=== PATIENT | male | born 1965 | race American Indian/Alaskan Native ===

== ENCOUNTER 2017-06-26 06:08 | Inpatient (IN) | payer MEDICARE, OTHER ==
[2017-06-26 06:14] VITALS: BMI 44.0
--- NOTE | 2017-06-26 06:37 | ED PDOC ---
Arrival/HPI - General Chief Complaint: Chest Pain Time Seen by Provider: 06/26/17 06:30 - History of Present Illness Narrative History of Present Illness (Text): 06/26/17 06:37 Patient is complaining of substernal chest pain and shortness of breath intermittent all night there was no fever no chills no dizziness no headache no palpitations no leg swelling no abdominal pain currently denies any pain Past Medical History - Provider Review Nursing Documentation Reviewed: Yes - Infectious Disease Hx of Infectious Diseases: None - Reproductive Currently : No - Cardiac Hx Cardiac Disorders: Yes Hx Atrial Fibrillation: Yes Hx Congestive Heart Failure: Yes Hx Hypertension: Yes Hx Pacemaker: Yes (left upper chest) Hx Peripheral Edema: Yes - Pulmonary Hx Respiratory Disorders: Yes Hx Chronic Obstructive Pulmonary Disease (COPD): Yes Hx Emphysema: Yes Hx Pneumonia: Yes Hx Sleep Apnea: Yes - Neurological Hx Neurological Disorder: Yes Hx Transient Ischemic Attacks (TIA): Yes (Hx of Strokes-2008) - HEENT Hx HEENT Disorder: No - Renal Hx Renal Disorder: No - Endocrine/Metabolic Hx Endocrine Disorders: Yes Hx Hypothyroidism: Yes - Hematological/Oncological Hx Blood Disorders: Yes Hx Blood Transfusions: Yes - Integumentary Hx Dermatological Disorder: No - Musculoskeletal/Rheumatological Hx Musculoskeletal Disorders: No Hx Falls: No - Gastrointestinal Hx Gastrointestinal Disorders: No - Genitourinary/Gynecological Hx Genitourinary Disorders: No - Psychiatric Hx Psychophysiologic Disorder: Yes Hx Anxiety: Yes Hx Substance Use: No - Surgical History Hx Coronary Artery Bypass Graft: Yes (2008) Hx Coronary Stent: Yes (3 Stents Prior to Quadruple Bypass) - Anesthesia Hx Anesthesia: Yes Hx Anesthesia Reactions: No Hx Malignant Hyperthermia: No - Suicidal Assessment Feels Threatened In Home Enviroment: No Family/Social History - Physician Review Nursing Documentation Reviewed: Yes Family/Social History: No Known Family HX Smoking Status: Current Some Days Smoker Hx Alcohol Use: No Hx Substance Use: No Allergies/Home Meds Allergies/Adverse Reactions: Allergies No Known Drug Allergies Allergy (Verified 06/26/17 06:14) n/a none Home Medications: Home Meds Medication Instructions Recorded Confirmed Atorvastatin [Lipitor] 80 mg PO DAILY 05/06/13 06/26/17 Hydroxychloroquine Sulfate 200 mg PO BID 05/06/13 06/26/17 [Plaquenil] Clopidogrel [Plavix] 75 mg PO DAILY 11/29/15 06/26/17 Levothyroxine [Synthroid] 1 tab PO DAILY 09/19/16 06/26/17 oxyCODONE [oxyCODONE Immediate 30 mg PO Q4H PRN 06/26/17 06/26/17 Release Tab] Review of Systems - Review of Systems Constitutional: Normal Eyes: Normal ENT: Normal Respiratory: SOB Cardiovascular: Chest Pain Gastrointestinal: Normal Genitourinary Male: Normal Musculoskeletal: Normal Skin: Normal Neurological: Normal Endocrine: Normal Hemo/Lymphatic: Normal Psychiatric: Normal Physical Exam Vital Signs Reviewed: Yes Vital Signs Temp Pulse Resp BP Pulse Ox 06/26/17 09:43 82 16 124/62 96 06/26/17 06:27 97.5 F L 83 17 113/48 L 96 Temperature: Afebrile Blood Pressure: Normal Pulse: Regular Respiratory Rate: Normal Appearance: Positive for: Well-Appearing, Non-Toxic, Comfortable Pain Distress: None Mental Status: Positive for: Alert and Oriented X 3 - Systems Exam Head: Present: Atraumatic, Normocephalic Pupils: Present: PERRL Extroacular Muscles: Present: EOMI Conjunctiva: Present: Normal Mouth: Present: Moist Mucous Membranes Neck: Present: Normal Range of Motion Respiratory/Chest: Present: Clear to Auscultation, Good Air Exchange. No: Respiratory Distress, Accessory Muscle Use Cardiovascular: Present: Regular Rate and Rhythm, Normal S1, S2. No: Murmurs Abdomen: Present: Normal Bowel Sounds. No: Tenderness, Distention, Peritoneal Signs Back: Present: Normal Inspection Upper Extremity: Present: Normal Inspection. No: Cyanosis, Edema Lower Extremity: Present: Normal Inspection. No: Edema Neurological: Present: GCS=15, CN II-XII Intact, Speech Normal Skin: Present: Warm, Dry, Normal Color. No: Rashes Psychiatric: Present: Alert, Oriented x 3, Normal Insight, Normal Concentration Medical Decision Making - Lab Interpretations Lab Results: 06/26/17 06:45 06/26/17 06:45 Lab Results 06/26/17 07:00: Digoxin < 0.4 L 06/26/17 06:45: Sodium 140, Chloride 100, Potassium 4.0, Carbon Dioxide 28, Anion Gap 16, BUN 38 H, Creatinine 1.4, Est GFR ( Amer) > 60, Est GFR ( Non-Af Amer) 54, Random Glucose 150 H, Calcium 9.1, Total Bilirubin 0.4, AST 13 L, ALT 17, Alkaline Phosphatase 141 H D, Lactate Dehydrogenase 518, Total Creatine Kinase 51, Troponin I < 0.01, NT-Pro-B Natriuret Pep 411, Total Protein 7.6, Albumin 3.6, Globulin 4.0, Albumin/Globulin Ratio 0.9 L 06/26/17 06:45: pO2 37, VBG pH 7.34, VBG pCO2 60.0, VBG HCO3 32.4 H, VBG Total CO2 34.2 H, VBG O2 Sat (Calc) 71.5 H, VBG Base Excess 4.8 H, VBG Potassium 4.0, Sodium 138.0, Chloride 103.0, Glucose 167 H, Lactate 1.0, FiO2 21.0, Venous Blood Potassium 4.0 06/26/17 06:45: WBC 6.3, RBC 3.99, Hgb 9.9 L, Hct 32.9 L, MCV 82.5, MCH 24.8 L, MCHC 30.1 L, RDW 17.7 H, Plt Count 220, MPV 10.6, Gran % 62.8, Lymph % (Auto) 27.0, [place] % (Auto) 7.4 H, Eos % (Auto) 2.5, Baso % (Auto) 0.3, Gran # 3.97, Lymph # 1.7, [place] # 0.5, Eos # 0.2, Baso # 0.02 - RAD Interpretation Radiology Orders: 06/26/17 06:39 CHEST PORTABLE [RAD] Stat - EKG Interpretation EKG Interpretation (Text): 06/26/17 06:38 100% paced rhythm rate of 87 - Medication Orders Current Medication Orders: Albuterol/Ipratropium (Duoneb 3 Mg/0.5 Mg (3 Ml) Ud) [id number] [facility] Last Admin: 06/27/17 01:00 Dose: 3 ml Apixaban (Eliquis) [address] [facility] PRN Reason: Protocol Last Admin: 06/26/17 22:00 Dose: 5 mg Atorvastatin Calcium (Lipitor) [address] [facility] Last Admin: 06/26/17 17:53 Dose: 80 mg Carvedilol (Coreg) [address] [facility] Last Admin: 06/26/17 17:53 Dose: 25 mg MAR Pulse and Blood Pressure Document 06/26/17 17:53 [facility] (Rec: 06/26/17 17:54 [place] [id number]) Pulse Pulse Rate (60-90) 90 Blood Pressure Blood Pressure (100/60-150/90) 115/64 Clopidogrel Bisulfate (Plavix) [address] [facility] Last Admin: 06/26/17 17:53 Dose: 75 mg Digoxin (Lanoxin) 0.[address] [facility] Last Admin: 06/26/17 14:53 Dose: 0.125 mg MAR Apical Pulse Rate Document 06/26/17 14:53 [facility] (Rec: 06/26/17 14:53 [id number]) Apical Pulse Rate Apical Pulse Rate (60-90 beats/min) 82 Ferrous Sulfate (Feosol) [address] [facility] Furosemide (Lasix) [address] [facility] Last Admin: 06/26/17 17:53 Dose: 40 mg MAR Blood Pressure Document 06/26/17 17:53 [facility] (Rec: 06/26/17 17:53 [place] [id number]) Blood Pressure Blood Pressure (100/60-150/90) 115/64 IVP Administration Document 06/26/17 17:53 [facility] (Rec: 06/26/17 17:53 [place] [id number]) Charges for Administration # of IVP Administrations 1 Hydroxychloroquine Sulfate (Plaquenil) [address] [facility] Last Admin: 06/26/17 19:24 Dose: 200 mg Insulin Human Regular (Humulin R Low) [address] [facility] PRN Reason: Protocol Last Admin: 06/26/17 22:04 Dose: Not Given Non-Admin Reason: Patient Refused Lisinopril (Zestril) [address] [facility] Last Admin: 06/26/17 11:29 Dose: 5 mg MAR Pulse and Blood Pressure Document 06/26/17 11:29 [facility] (Rec: 06/26/17 11:29 [email or web address]) Pulse Pulse Rate (60-90) 89 Blood Pressure Blood Pressure (100/60-150/90) 130/85 Oxycodone HCl (Oxycodone Immediate Release Tab) 30 mg PO Q4H PRN PRN Reason: Pain, moderate (4-7) Last Admin: 06/27/17 00:23 Dose: 30 mg MAR Pain Assessment Document 06/27/17 00:23 [facility] (Rec: 06/27/17 00:23 [facility]DE [id number]) Pain Reassessment Is this a pain reassessment? Yes Sleep Is patient sleeping during reassessment? No Presence of Pain Presence of Pain Yes Sitagliptin Phosphate (Januvia) 25 mg PO DAILY JUSTIN Discontinued Medications Oxycodone HCl (Oxycodone Immediate Release Tab) 30 mg PO TID PRN PRN Reason: Pain, moderate (4-7) Last Admin: 06/26/17 15:35 Dose: 30 mg MAR Pain Assessment Document 06/26/17 15:35 [facility] (Rec: 06/26/17 15:36 [facility] [id number]) Pain Reassessment Is this a pain reassessment? Yes Sleep Is patient sleeping during reassessment? No Presence of Pain Presence of Pain Yes Pain Scale Used Pain Scale Used Numeric Location Upper or Lower Lower Pain Location Body Site Back Description Description Chronic Intensity of Pain at present 10 Site Observation wnl Pain Behavior Restlessness Aggravating Factors None Alleviating Factors/Management Medication Techniques Alleviating Factors Medication - Transfer of Care Patient signed out to Dr:Tory sheffield Disposition/Present on Arrival - Present on Arrival Any Indicators Present on Arrival: No History of DVT/PE: No History of Uncontrolled Diabetes: No Urinary Catheter: No History of Decub. Ulcer: No History Surgical Site Infection Following: None - Disposition Have Diagnosis and Disposition been Completed?: Yes Diagnosis: Chest pain Disposition: HOSPITALIZED Disposition Time: 07:00 Patient Problems: Current Active Problems Problem Status Onset Chest pain Acute Condition: STABLE
--- NOTE | 2017-06-26 07:07 | ED PDOC ---
Physical Exam Vital Signs Temp Pulse Resp BP Pulse Ox 06/26/17 06:27 97.5 F L 83 17 113/48 L 96 Medical Decision Making ED Course and Treatment: 06/26/17 07:06 Patient was signed out to me by Dr. Chaves. Patient is currently pending work up. 06/26/17 09:[address] Lloyd will admit - Lab Interpretations Lab Results: 06/26/17 06:45 06/26/17 06:45 Lab Results 06/26/17 06:45: Sodium 140, Chloride 100, Potassium 4.0, Carbon Dioxide 28, Anion Gap 16, BUN 38 H, Creatinine 1.4, Est GFR ( Amer) > 60, Est GFR ( Non-Af Amer) 54, Random Glucose 150 H, Calcium 9.1, Total Bilirubin 0.4, AST 13 L, ALT 17, Alkaline Phosphatase 141 H D, Lactate Dehydrogenase 518, Total Creatine Kinase 51, Troponin I < 0.01, NT-Pro-B Natriuret Pep 411, Total Protein 7.6, Albumin 3.6, Globulin 4.0, Albumin/Globulin Ratio 0.9 L 06/26/17 06:45: pO2 37, VBG pH 7.34, VBG pCO2 60.0, VBG HCO3 32.4 H, VBG Total CO2 34.2 H, VBG O2 Sat (Calc) 71.5 H, VBG Base Excess 4.8 H, VBG Potassium 4.0, Sodium 138.0, Chloride 103.0, Glucose 167 H, Lactate 1.0, FiO2 21.0, Venous Blood Potassium 4.0 06/26/17 06:45: WBC 6.3, RBC 3.99, Hgb 9.9 L, Hct 32.9 L, MCV 82.5, MCH 24.8 L, MCHC 30.1 L, RDW 17.7 H, Plt Count 220, MPV 10.6, Gran % 62.8, Lymph % (Auto) 27.0, [place] % (Auto) 7.4 H, Eos % (Auto) 2.5, Baso % (Auto) 0.3, Gran # 3.97, Lymph # 1.7, [place] # 0.5, Eos # 0.2, Baso # 0.02 - RAD Interpretation Radiology Orders: 06/26/17 06:39 CHEST PORTABLE [RAD] Stat - Scribe Statement The provider has reviewed the documentation as recorded by the Scribe ?? Disposition/Present on Arrival - Present on Arrival Any Indicators Present on Arrival: No History of DVT/PE: No History of Uncontrolled Diabetes: No Urinary Catheter: No History of Decub. Ulcer: No History Surgical Site Infection Following: None - Disposition Have Diagnosis and Disposition been Completed?: Yes Diagnosis: Chest pain Disposition: HOSPITALIZED Disposition Time: 09:19 Condition: STABLE Discharge Instructions (ExitCare): Chest Pain (ED) Forms: [employer] (Taiwanese)
[2017-06-26 07:34] LABS: VENOUS BLOOD GAS BASE EXCESS 4.8 mmol/L (0.0-2.0); VENOUS BLOOD PH 7.34 (7.32-7.43)
[2017-06-26 07:43] LABS: ALB/GLOB RATIO 0.9 (1.1-1.8); ALKALINE PHOSPHATASE 141 U/L (38-126); ALT/SGPT 17 U/L (7-56); AST/SGOT 13 U/L (17-59); BILIRUBIN,TOTAL 0.4 mg/dL (0.2-1.3); BLOOD UREA NITROGEN 38 mg/dL (7-21); CALCIUM 9.1 mg/dL (8.4-10.5); CARBON DIOXIDE 28 mmol/L (21-33); CHLORIDE 100 mmol/L (98-107); GFR AFRICAN-AMERICAN > 60; GLUCOSE,RANDOM 150 mg/dL (70-110); SODIUM 140 mmol/L (132-148); TOTAL PROTEIN 7.6 g/dL (5.8-8.3)
[2017-06-26 07:51] LABS: BASO # 0.02 K/mm3 (0.0-2.0); BASO % 0.3 % (0.0-3.0); EOS # 0.2 (0.0-0.7); EOS % 2.5 % (1.5-5.0); GRAN # 3.97 (1.4-6.5); GRAN % 62.8 % (50.0-68.0); HEMATOCRIT 32.9 % (42.0-52.0); LYMPH # 1.7 (1.2-3.4); MEAN CELL VOLUME 82.5 fl (80.0-105.0); MEAN CORPUSCULAR HEMOGLOBIN 24.8 pg (25.0-35.0); MEAN CORPUSCULAR HGB CONC 30.1 g/dl (31.0-37.0); MEAN PLATELET VOLUME 10.6 fl (7.0-11.0); MONO # 0.5 (0.1-0.6); MONO % 7.4 % (1.0-6.0); RED CELL DISTRIBUTION WIDTH 17.7 % (11.5-14.5); WHITE BLOOD COUNT 6.3 10^3/ul (4.5-11.0)
[2017-06-26 07:55] LABS: TROPONIN I < 0.01 ng/mL
--- NOTE | 2017-06-26 09:03 | CARD ---
APPROVED REPORT EKG Measurement Heart [id number] <Conclusion> Electronic ventricular pacemaker: 100 % V. Paced, A. Sensed. No change
[2017-06-26 10:22] VITALS: O2SAT 100
[2017-06-26] MEDS: oxyCODONE 30 mg Immediate Release Tab PO PRN ×3 (11:29→20:30)
[2017-06-26] MEDS ORDERED: oxyCODONE 30 mg Immediate Release Tab PO SCH ×2 (14:00)
[2017-06-26] MEDS: Digoxin 125 mcg (0.125 mg) Tab PO SCH (14:53)
--- NOTE | 2017-06-26 15:58 | RAD ---
HISTORY: Chest pain COMPARISON: 05/26/2016 FINDINGS: LUNGS: No active pulmonary disease. PLEURA: No significant pleural effusion identified, no pneumothorax apparent. CARDIOVASCULAR: AICD. Normal heart size. No congestive change. OSSEOUS STRUCTURES: No significant abnormalities. VISUALIZED UPPER ABDOMEN: Normal. OTHER FINDINGS: None. IMPRESSION: No active disease.
[2017-06-26] MEDS: Insulin Reg-LOW-Coverage SC SCH (22:04)
[2017-06-27] MEDS: oxyCODONE 30 mg Immediate Release Tab PO PRN ×4 (00:23→14:17)
[2017-06-27] MEDS: Albuterol-Ipratrop 3 mg / 0.5 (3 ml) UD IH SCH ×3 (01:00→14:12)
--- NOTE | 2017-06-27 04:54 | CON ---
PULMONARY CONSULTATION DATE: 06/26/2017 REFERRING PHYSICIAN: Azalea Lloyd MD REASON FOR CONSULTATION: Known sleep apnea syndrome, chronic lung disease, active smoker, cardiomyopathy, and noncompliant. HISTORY OF PRESENT ILLNESS: This is a 51-year-old gentleman known to me from [facility], last seen about 4 years or so, diagnosed with sleep apnea syndrome, noncompliant with it from the last couple of months, also active smoker, visiting brother from [place] to [place], got short of breath and up in the emergency room, admitted with cardiomyopathy and heart failure, and does have cough and shortness of breath. No nausea. No vomiting. No diarrhea. Does have a leg swelling. PAST MEDICAL HISTORY: Cardiomyopathy, obstructive sleep apnea syndrome, COPD, morbid obesity, history of coronary artery disease, also has a history of AICD, atrial fibrillation, and history of lower extremity cellulitis. SOCIAL HISTORY: Active smoker. Deny any alcohol use. FAMILY HISTORY: No significant cardiopulmonary disease reported. MEDICATIONS: He is on Coreg 25 mg twice a day, Eliquis 5 mg twice a day, ferrous sulfate 325 mg daily, insulin coverage, Januvia 25 mg daily, digoxin 0.125 mg daily, Lasix 40 mg twice a day, Lipitor 80 mg daily, oxycodone 30 mg q.4 hours p.r.n., Plaquenil 200 mg twice a day, Plavix 75 mg daily, and Zestril 5 mg daily. REVIEW OF SYSTEMS: No headache. No rhinitis. Has cough and shortness of breath. No chest pain at present. No nausea. No vomiting or diarrhea. Significant leg swelling. PHYSICAL EXAMINATION: GENERAL: Sitting at the side of the bed, mild distress secondary to cough and shortness of breath. VITAL SIGNS: Temperature is 98, heart rate is 93, respiratory rate is 20, blood pressure is 115/64, and pulse ox 100% on nasal cannula. HEENT: Moist mucous membrane. Crowded airway. Mallampati score is IV. NECK: Short thick neck. LUNGS: Has few crackles at bases, scattered rhonchi. HEART: S1 and S2. ABDOMEN: Soft and nontender. No organomegaly. EXTREMITIES: Does have a chronic change of his lower extremity. NEUROLOGIC: Awake, alert, and follow simple commands. LABORATORY DATA: Shows hemoglobin 9.9, hematocrit 32.9, WBC 6.3, and platelet count 220. done, which shows pH of 7.34, pCO2 of 60, and O2 of 34. Sodium 140, potassium 4.0, chloride 100, bicarbonate 28, BUN 38, creatinine 1.4, glucose 150, calcium 9.1, LDH is 518, total bilirubin 0.4, AST 13, ALT 17, alk phos 141, proBNP is 411, and albumin is 3.6. Head and chest x-ray done, which shows no active pulmonary disease. IMPRESSION AND PLAN: Cardiomyopathy, history of atrial fibrillation, chronic obstructive lung disease, hypothyroid, has automatic implantable cardioverter-defibrillator, renal insufficiency, chronic obstructive lung disease, obstructive sleep apnea syndrome, and diabetes. I spoke to the patient in detail, urge him to stop smoking, we will place him on continuous positive airway pressure 10 cm, will need sleep study as outpatient, pulmonary function test as outpatient, diuretics , anticoagulation, fall precaution, and followup labs in the morning. Thank you and we will follow with you. Nayla Robins MD
[2017-06-27 06:53] LABS: HEMATOCRIT 32.5 % (42.0-52.0); MEAN CELL VOLUME 81.9 fl (80.0-105.0); MEAN CORPUSCULAR HEMOGLOBIN 24.7 pg (25.0-35.0); MEAN CORPUSCULAR HGB CONC 30.2 g/dl (31.0-37.0); MEAN PLATELET VOLUME 10.3 fl (7.0-11.0); RED CELL DISTRIBUTION WIDTH 17.3 % (11.5-14.5); WHITE BLOOD COUNT 5.9 10^3/ul (4.5-11.0)
[2017-06-27 07:06] LABS: ALB/GLOB RATIO 0.8 (1.1-1.8); ALKALINE PHOSPHATASE 95 U/L (38-126); ALT/SGPT 19 U/L (7-56); AST/SGOT 15 U/L (17-59); BILIRUBIN,TOTAL 0.5 mg/dL (0.2-1.3); BLOOD UREA NITROGEN 24 mg/dL (7-21); CALCIUM 8.9 mg/dL (8.4-10.5); CARBON DIOXIDE 28 mmol/L (21-33); CHLORIDE 101 mmol/L (98-107); GFR AFRICAN-AMERICAN > 60; GLUCOSE,RANDOM 118 mg/dL (70-110); SODIUM 137 mmol/L (132-148); TOTAL PROTEIN 7.4 g/dL (5.8-8.3)
[2017-06-27 07:18] LABS: TROPONIN I < 0.01 ng/mL
[2017-06-27] MEDS: Insulin Reg-LOW-Coverage SC SCH ×2 (07:56→11:55)
--- NOTE | 2017-06-27 10:30 | HP ---
CHIEF COMPLAINT: Chest pain. HISTORY OF PRESENT ILLNESS: Mr. Axel Lora, 51 years old male with history of multiple medical problems, is visiting his nephew, came with complaining of substernal chest pain, shortness of breath, it is intermittent all night. There was no fever, no chills, no dizziness, no headache, no palpitations, no swelling of the leg, no abdominal pain. The patient was seen by me in the telemetry. His nurse, Steph and his nephew was on the bedside, complaining about back pain and according to him he is taking Oxycodone every 4 hours as needed. PAST MEDICAL HISTORY: Atrial fibrillation, congestive heart failure, hypertension, pacemaker in the left upper chest, peripheral edema, COPD, emphysema, pneumonia, sleep apnea, history of TIA, hypothyroidism, blood transfusion, anxiety, coronary artery bypass graft, coronary artery stenting, 3 stents before quadruple bypass. FAMILY HISTORY: Father and mother noncontributory. HABITS: Currently smoking. Alcohol - no. Drugs abuse - no. ALLERGIES: THE PATIENT IS NOT ALLERGIC TO ANY MEDICATIONS PER PATIENT. HOME MEDICATIONS: Lipitor, Plaquenil, Plavix, Synthroid, and oxycodone. REVIEW OF SYSTEMS: The patient is seen and examined on the bedside, sitting comfortable, except that complaining pain in the back. sitting on the bedside also. At this moment, no chest pain, no nausea, vomiting, diarrhea. No hematuria, hematochezia. No headache, no dizziness. No fevers, no chills. PHYSICAL EXAMINATION: VITAL SIGNS: Temperature 97.5, pulse 56, respirations 17, blood pressure 113/48, pulse oximetry 96%. HEENT: Head is normocephalic and atraumatic. Eyes, PERRLA. Extraocular muscles are intact. Conjunctivae are clear. Nose is patent. Mucous membranes are moist. NECK: Supple. No carotid bruits, JVD, or thyromegaly. CHEST: Bilaterally symmetrical. HEART: S1 and S2 positive. LUNGS: Clear to auscultation. ABDOMEN: Soft. Bowel sounds present. No organomegaly. EXTREMITIES: No edema. No cyanosis. NEUROLOGICAL: The patient is awake and alert. Moving all four extremities. No focal deficits. LABORATORY DATA: White blood cells 6.3, hemoglobin 9.9, hematocrit 32.9, and platelets 220. Sodium 140, potassium 4.0, BUN 13, creatinine 1.4, glucose 150. AST 13, alkaline phosphatase 141. Digoxin level less than 4. ASSESSMENT AND PLAN: Mr. Axle Lora is a 51-year-old male with anemia, increase BUN, hyperglycemia, abnormal liver function test, came with chest pain, history of obesity, atrial fibrillation, congestive heart failure, hypertension, history of pacemaker in the left upper chest, peripheral vascular disease, chronic obstructive pulmonary disease, asthma, emphysema, pneumonia, obstructive sleep apnea syndrome, transient ischemic attack, hypothyroidism, anemia, status post blood transfusion, anxiety, gastrointestinal and deep venous thrombosis prophylaxis. Discussion done with Dr. Robins. The patient is getting pain medications for his back pain as per the patient. Call pain management. Call will be placed to Dr. Lucero. Started the patient on Coreg. The patient is taking both Eliquis and Plavix. We will leave on the cardiological decision. Lipitor for hypercholesterolemia. Repeat labs. We will follow up. Azalea Lloyd MD MTDD
[2017-06-27 12:01] VITALS: BP 134/87; PULSE 72; RESP 19; TEMP 97.1
[2017-06-27] MEDS: Digoxin 125 mcg (0.125 mg) Tab PO SCH (13:28)
[2017-06-27 13:31] VITALS: PULSE 90
--- NOTE | 2017-06-27 19:18 | CON ---
REASON FOR CONSULTATION: Cardiac evaluation, chest pain, cardiomyopathy, history of coronary artery disease, status post PTCA. BRIEF CLINICAL HISTORY: A 51-year-old male with past medical history significant for coronary artery disease, status post stent in the past; history of atrial fibrillation; cardiomyopathy, status post AICD, came in with complaint of chest pain, sharp. PAST MEDICAL HISTORY: Significant for atrial fibrillation, cardiomyopathy, history of PTCA, history of coronary artery bypass surgery, history of AICD, first one was done in [address] Patel. Rrecently the patient had generator change by Dr. Valenzuela in 2012 and history of last catheterization stent was done by Dr. Sultana and was told that the patient does not need any further stenting. Past history is significant for diabetes, hypertension, hyperlipidemia, morbid obesity, AICD, nonischemic cardiomyopathy, history of TIA, history of sleep apnea, pneumonia, quadruple bypass and history of 3 coronary stents post bypass. FAMILY HISTORY: Noncontributory. HABITS: Smokes, currently smokes half-a-pack. Denies any history of alcohol abuse. ALLERGIES: NOT ALLERGY TO ANY MEDICATION. CURRENT MEDICATIONS: The patient taking oxycodone, Januvia, lisinopril, digoxin, clopidogrel, Plavix, and Eliquis. REVIEW OF SYSTEMS: As per HPI. PREVIOUS CARDIAC WORKUP: Most recently cardiac catheterization in 2014 by his editorial project manager showed ejection fraction 20% and cannot do any stent or bypass. The patient's last echocardiography in 04/01/2016 showed ejection fraction within normal limit. Blood workup: WBC 5.9, hemoglobin 9, hematocrit 32.5, and platelet count 184. Chemistry showed sodium 135, potassium 4, chloride 101, carbon dioxide 28, anion gap 12, BUN 24, creatinine 0.9, troponin 0.01. IMPRESSION: A 51-year-old male with past medical history significant for coronary artery disease, status post 4 vessels coronary artery bypass graft in the past; diabetes; hypertension; hyperlipidemia; history of percutaneous transluminal coronary angioplasty most recently, the patient according to him was had a cath done by his doctor, Dr. Moon uSltana and told further stenting, CABG cannot be done. Diabetes, hypertension, hyperlipidemia, AICD, cardiomyopathy, atrial fibrillation, history of chronic obstructive pulmonary disease, history of obstructive sleep apnea. RECOMMENDATIONS: We will get echo and stress test. Further recommendations after follow up with you. So far, troponin is negative. ADDENDUM: Discussed with the patient. The patient agreed for stress test. The patient was brought to the label drier, noninvasive lab for stress test. The patient refused and said that his doctor told that not to get stress test, so he refused the stress test. We will treat medically and we will discontinue telemetry. Nayla Obrien MD
[2017-06-28] MEDS ORDERED: Levothyroxine 25 MCG TAB PO SCH (06:00)
--- NOTE | 2017-06-29 11:25 | PQF GENQUE ---
06/29/17 Dr. Lloyd, Please clarify principal diagnosis--etiology of chest pain. Patient has multiple conditions indicated, including CHF, COPD, and A-fib. Please document reason for admission after study. Thank you. Clarification of your documentation is requested to better reflect the severity of illness and intensity of treatment of your patient. call cardiology Indicators present [] Specify: [] [] Specify: [] [] Specify: [] [] Specify: [] Location in the medical record that reflects the above clinical findings: [] Treatment Provided: [] PHYSICIAN'S RESPONSE Based on your medical judgment of the clinical indicators outlined above please clarify the following: [] Practitioner response [] If unable to determine, please check the box, sign and date. Present On Admission (POA) Indicator: [] Present at the time of admission [] Not present at the time of admission [] Clinically Undetermined In responding to this query, please exercise your independent professional judgment. The fact that a question is asked does not imply that any particular answer is desired or expected. Thank you for your clarification on this documentation. If you have any questions please call:[ ] * Thank you, [ ] antenna specialist JEREMY
--- NOTE | 2017-06-30 08:59 | PQF GENQUE ---
06/30/17 Dr. Obrien, Dr. Lloyd requested that you answer the following question: Please clarify principal diagnosis--etiology of chest pain. Patient has multiple diagnoses, including CHF, COPD, atrial fib. Thank you very much. Clarification of your documentation is requested to better reflect the severity of illness and intensity of treatment of your patient. Indicators present [] Specify: [] [] Specify: [] [] Specify: [] [] Specify: [] Location in the medical record that reflects the above clinical findings: [] Treatment Provided: [] PHYSICIAN'S RESPONSE Based on your medical judgment of the clinical indicators outlined above please clarify the following: [] Practitioner response [] If unable to determine, please check the box, sign and date. Present On Admission (POA) Indicator: [x] Present at the time of admission [] Not present at the time of admission [] Clinically Undetermined In responding to this query, please exercise your independent professional judgment. The fact that a question is asked does not imply that any particular answer is desired or expected. Thank you for your clarification on this documentation. If you have any questions please call:[ ] * Thank you, [ ] transmission mechanic JEREMY
--- NOTE | 2017-07-01 08:53 | PQF GENQUE ---
07/01/17 Dr. Obrien, Dr. Lloyd requested that you answer the following question for this patient: Principal diagnosis--reason for admission after study? Thank you. Clarification of your documentation is requested to better reflect the severity of illness and intensity of treatment of your patient. Indicators present [] Specify: [] [] Specify: [] [] Specify: [] [] Specify: [] Location in the medical record that reflects the above clinical findings: [] Treatment Provided: [] PHYSICIAN'S RESPONSE Based on your medical judgment of the clinical indicators outlined above please clarify the following: [] Practitioner response [] If unable to determine, please check the box, sign and date. Present On Admission (POA) Indicator: [x] Present at the time of admission [] Not present at the time of admission [] Clinically Undetermined In responding to this query, please exercise your independent professional judgment. The fact that a question is asked does not imply that any particular answer is desired or expected. Thank you for your clarification on this documentation. If you have any questions please call:[ ] * Thank you, [ ] dairy technician JEREMY
--- NOTE | 2017-07-04 07:14 | DS ---
The patient was admitted on 06/26/2017 went against medical advice on 06/27/2017. CHIEF COMPLAINT: Chest pain. HISTORY OF PRESENT ILLNESS: Mr. Axel Lora is a 51-year-old male with history of multiple medical problems was visiting his nephew, came complaining of substernal chest pain and shortness of breath. It was intermittent at night. There was no fever, no chills, no dizziness, no headache, no palpitation, no swelling of the legs, no abdominal pain. The patient was seen by me in the telemetry on admission. His nurse, Steph and his nephew was on the bedside also. According to him, he is taking oxycodone every 4 hours for his back. We admitted the patient and did chest x-ray. Cardiology consult called with Dr. Obrien, Pulmonary with Dr. Robins. Plan was to do testing, but the patient decided to go home against medical advice. Next day, education was done, but he still left the hospital. PAST MEDICAL HISTORY: Atrial fibrillation, congestive heart failure, hypertension, pacemaker in the left upper chest, peripheral edema, COPD, emphysema, pneumonia, sleep apnea syndrome, history of TIA, hypothyroidism, blood transfusion, anxiety, coronary artery bypass graft, coronary artery disease, 3 stents before quadruple bypass. FAMILY HISTORY: Father and mother noncontributory. HABITS: Currently smoking. Alcohol no, drugs no as per the patient. ALLERGIES: THE PATIENT IS NOT ALLERGIC WITH ANY MEDICATIONS. HOME MEDICATIONS: Lipitor, Plaquenil, Plavix, Synthroid, and oxycodone. REVIEW OF SYSTEMS: The patient was seen and examined on the bedside early in the morning, looking comfortable. No nausea, vomiting, or diarrhea. No hematuria or hematochezia. No swelling of the leg. No chest pain. No palpitation. No headache. No dizziness. No fevers. No chills. PHYSICAL EXAMINATION: VITAL SIGNS: Temperature 97.1, pulse 72, blood pressure 134/84, and respiratory rate 19. HEENT: Head is normocephalic and atraumatic. Eyes, PERRLA. Extraocular muscles are intact. Conjunctivae are clear. Nose is patent. Mucous membranes are moist. NECK: Supple. No carotid bruits, JVD, or thyromegaly. CHEST: Bilaterally symmetrical. HEART: S1 and S2 positive. LUNGS: Clear to auscultation. ABDOMEN: Soft. Bowel sounds present. No organomegaly. EXTREMITIES: No edema. No cyanosis. NEUROLOGICAL: The patient is awake and alert. Moving all four extremities. No focal deficits. LABORATORY DATA: White blood cells 5.9, hemoglobin 9.8, hematocrit 32.5, and platelets 184. Sodium 137, potassium 4.0, BUN 24, creatinine 0.9, and glucose 118. AST 15. ASSESSMENT AND PLAN: Mr. 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 Obrien, Quarter Inspector, comorbid obesity, history of atrial fibrillation and cardiomyopathy, history of percutaneous transluminal coronary angioplasty, coronary artery disease, bypass graft surgery, history of automatic implantable cardioverter defibrillator, first one was done in 2002, by Dr. Patel. Recently, the patient had generator change ,in 2012, and history of last catheterization stent was done by Dr. Sultana and was told that the patient does not need any further stenting. The patient's history is significant for diabetes, hypertension, hypercholesterolemia, nonischemic cardiomyopathy, has transient ischemic attack, sleep apnea syndrome, quadruple bypass after 3 coronary arteries stenting, so has multiple problems requiring to get echo and stress test, so recommendation will be after that. Actually, the patient was agreed for stress test, then brought to the [facility], noninvasive labs for stress test. The patient refused and said that his doctor told that not to get stress test there, so they want to do as outpatient, so he refused stress test. Finally, the patient decided to go against medical advice. Education done, went AMA , but still was informed in case if he will have again shortness of breath or chest pain, come back to the Emergency Room. GI and DVT prophylaxis. Repeat labs. We will follow. Azalea Lloyd MD MTDTommy
--- NOTE | 2017-07-04 09:41 | PQF GENQUE ---
07/04/17 Dr. Lloyd, I have posted this query twice to Dr. Obrien and he has not provided the answer to the question. As the attending physician, please clarify which diagnosis you want to be coded as the principal diagnosis. Thank you. Clarification of your documentation is requested to better reflect the severity of illness and intensity of treatment of your patient. Indicators present [] Specify: [] PT LEFT AMA , WORK UP WAS NEVER COPLETED , WE KNOW COMPLAINTS , CANT MAKE DEFINATE DIAGNOSIS ? [] Specify: [] [] Specify: [] [] Specify: [] Location in the medical record that reflects the above clinical findings: [] Treatment Provided: [] PHYSICIAN'S RESPONSE Based on your medical judgment of the clinical indicators outlined above please clarify the following: [] Practitioner response [] If unable to determine, please check the box, sign and date. Present On Admission (POA) Indicator: [] Present at the time of admission [] Not present at the time of admission [] Clinically Undetermined In responding to this query, please exercise your independent professional judgment. The fact that a question is asked does not imply that any particular answer is desired or expected. Thank you for your clarification on this documentation. If you have any questions please call:[ ] * Thank you, [ ] storm sash maker JEREMY
== END 2017-06-27 16:38 | disposition left against medical advice (07) | DRG 191 ==
LOC: ED 06:08 → ERH 09:17 → 2RNO 10:08
PROVIDERS: ADMIT Internal Medicine; ATTEND Internal Medicine
DX: J44.9 Chronic obstructive pulmonary disease, unspecified (principal); I42.9 Cardiomyopathy, unspecified; I11.0 Hypertensive heart disease with heart failure; I50.9 Heart failure, unspecified; J43.9 Emphysema, unspecified; E11.9 Type 2 diabetes mellitus without complications; D64.9 Anemia, unspecified; I73.9 Peripheral vascular disease, unspecified; I48.91 Unspecified atrial fibrillation; Z95.1 Presence of aortocoronary bypass graft; I25.10 Atherosclerotic heart disease of native coronary artery without angina pectoris; Z87.01 Personal history of pneumonia (recurrent); Z86.73 Personal history of transient ischemic attack (TIA), and cerebral infarction without residual deficits; E03.9 Hypothyroidism, unspecified; F41.9 Anxiety disorder, unspecified; Z95.5 Presence of coronary angioplasty implant and graft; Z95.0 Presence of cardiac pacemaker; Z95.810 Presence of automatic (implantable) cardiac defibrillator; G47.33 Obstructive sleep apnea (adult) (pediatric); E78.5 Hyperlipidemia, unspecified; E78.00 Pure hypercholesterolemia, unspecified; F17.200 Nicotine dependence, unspecified, uncomplicated; Z79.02 Long term (current) use of antithrombotics/antiplatelets; Z79.899 Other long term (current) drug therapy; Z91.19 Patient's noncompliance with other medical treatment and regimen; R40.2412 Glasgow coma scale score 13-15, at arrival to emergency department; R79.89 Other specified abnormal findings of blood chemistry; E66.9 Obesity, unspecified; N28.9 Disorder of kidney and ureter, unspecified; F17.210 Nicotine dependence, cigarettes, uncomplicated

== ENCOUNTER 2017-08-27 00:01 | Observation (INO) | payer MEDICARE, OTHER ==
[2017-08-27 00:10] VITALS: BMI 46.4
[2017-08-27 00:42] LABS: BASO # 0.03 K/mm3 (0.0-2.0); BASO % 0.3 % (0.0-3.0); EOS # 0.1 (0.0-0.7); EOS % 1.6 % (1.5-5.0); GRAN # 6.34 (1.4-6.5); GRAN % 72.5 % (50.0-68.0); HEMATOCRIT 34.6 % (42.0-52.0); LYMPH # 1.8 (1.2-3.4); LYMPH % 20.6 % (22.0-35.0); MEAN CELL VOLUME 83.6 fl (80.0-105.0); MEAN CORPUSCULAR HEMOGLOBIN 25.4 pg (25.0-35.0); MEAN CORPUSCULAR HGB CONC 30.3 g/dl (31.0-37.0); MEAN PLATELET VOLUME 9.3 fl (7.0-11.0); MONO # 0.4 (0.1-0.6); RED CELL DISTRIBUTION WIDTH 15.8 % (11.5-14.5); WHITE BLOOD COUNT 8.8 10^3/ul (4.5-11.0)
[2017-08-27] MEDS ORDERED: Morphine 5 MG/ML SYRINGE IVP STA (00:46)
[2017-08-27 00:54] LABS: ALB/GLOB RATIO 0.9 (1.1-1.8); ALKALINE PHOSPHATASE 147 U/L (38-126); ALT/SGPT 26 U/L (7-56); AST/SGOT 19 U/L (17-59); BILIRUBIN,TOTAL 0.4 mg/dL (0.2-1.3); BLOOD UREA NITROGEN 36 mg/dL (7-21); CALCIUM 9.2 mg/dL (8.4-10.5); CARBON DIOXIDE 25 mmol/L (21-33); CHLORIDE 103 mmol/L (98-107); GFR AFRICAN-AMERICAN > 60; GLUCOSE,RANDOM 210 mg/dL (70-110); INR 1.49 (0.93-1.08); MAGNESIUM 1.6 mg/dL (1.7-2.2); PARTIAL THROMBOPLASTIN TIME 32.3 Seconds (25.1-36.5); SODIUM 139 mmol/L (132-148); TOTAL PROTEIN 8.2 g/dL (5.8-8.3)
[2017-08-27 01:05] LABS: TROPONIN I < 0.01 ng/mL
--- NOTE | 2017-08-27 01:59 | ED PDOC ---
Arrival/HPI - General Chief Complaint: Chest Pain Time Seen by Provider: 08/27/17 00:10 Historian: Patient - History of Present Illness Narrative History of Present Illness (Text): 08/27/17 01:38 51 year old obese male, whose past medical history includes CHF (4 Stents), lupus and pacermaker, CABG (2009), and PE, presents to the Emergency department complaining of left sided chest pain. Patient describes the pain as a pressure and squeezing pain. He also felt dizzy and light headed when this occurred. Patient is compliant with medication and denies smoking. Patient reports mild shortness of breath, chronic lower extremity edema which is a little more swollen than usual, but denies any any fevers, chills, shortness of breath, abdominal pain, nausea, vomiting, diarrhea, back pain, neck pain, urinary/bowel changes, headache, or any other complaint. 08/27/17 03:37 Time/Duration: 1 hour Symptom Onset: Sudden Symptom Course: Unchanged Quality: Pressure Activities at Onset: Light Context: Home Past Medical History - Provider Review Nursing Documentation Reviewed: Yes - Travel History Have you recently traveled outside [place] w/in the past 3 mons?: No - Infectious Disease Hx of Infectious Diseases: None - Reproductive Currently : No - Cardiac Hx Atrial Fibrillation: Yes Hx Cardiac Arrhythmia: Yes (AFIB) Hx Congestive Heart Failure: Yes Hx Hypertension: Yes Hx Pacemaker: Yes (left upper chest) Hx Peripheral Edema: Yes - Pulmonary Hx Chronic Obstructive Pulmonary Disease (COPD): Yes Hx Emphysema: Yes Hx Pneumonia: Yes Hx Sleep Apnea: Yes - Neurological Hx Transient Ischemic Attacks (TIA): Yes (Hx of Strokes-2008) - HEENT Hx HEENT Disorder: No - Renal Hx Renal Disorder: No - Endocrine/Metabolic Hx Hypothyroidism: Yes - Hematological/Oncological Hx Blood Disorders: Yes Hx Blood Transfusions: Yes - Integumentary Hx Dermatological Disorder: No - Musculoskeletal/Rheumatological Hx Musculoskeletal Disorders: No Hx Falls: No - Gastrointestinal Hx Gastrointestinal Disorders: No - Genitourinary/Gynecological Hx Genitourinary Disorders: No - Psychiatric Hx Anxiety: Yes Hx Substance Use: No - Surgical History Hx Coronary Artery Bypass Graft: Yes (2008) Hx Coronary Stent: Yes (3 Stents Prior to Quadruple Bypass) - Anesthesia Hx Anesthesia: Yes Hx Anesthesia Reactions: No Hx Malignant Hyperthermia: No - Suicidal Assessment Feels Threatened In Home Enviroment: No Family/Social History - Physician Review Nursing Documentation Reviewed: Yes Family/Social History: No Known Family HX Smoking Status: Current Some Days Smoker Hx Alcohol Use: No Hx Substance Use: No Allergies/Home Meds Allergies/Adverse Reactions: Allergies No Known Drug Allergies Allergy (Verified 07/12/17 14:03) n/a none Home Medications: Home Meds Medication Instructions Recorded Confirmed Atorvastatin [Lipitor] 80 mg PO DAILY 05/06/13 08/27/17 Hydroxychloroquine Sulfate 200 mg PO BID 05/06/13 08/27/17 [Plaquenil] Clopidogrel [Plavix] 75 mg PO DAILY 11/29/15 08/27/17 Levothyroxine [Synthroid] 1 tab PO DAILY 09/19/16 08/27/17 oxyCODONE [oxyCODONE Immediate 30 mg PO Q4H PRN 06/26/17 08/27/17 Release Tab] Review of Systems - Physician Review All systems were reviewed & negative as marked: Yes - Review of Systems Constitutional: absent: Fevers, Other (Chills) Respiratory: SOB. absent: Cough Cardiovascular: Chest Pain, Edema (lower extremity edema ) Gastrointestinal: absent: Diarrhea, Nausea, Vomiting Genitourinary Male: absent: Dysuria, Frequency, Hematuria Musculoskeletal: absent: Back Pain, Neck Pain Neurological: Dizziness. absent: Headache Physical Exam Vital Signs Reviewed: Yes Vital Signs Temp Pulse Resp BP Pulse Ox 08/27/17 03:30 88 16 133/83 100 08/27/17 02:30 78 16 121/61 100 08/27/17 00:30 98.2 F 95 H 20 116/74 97 Temperature: Afebrile Blood Pressure: Normal Pulse: Tachycardic Respiratory Rate: Normal Appearance: Positive for: Well-Appearing, Non-Toxic, Comfortable, Other (Obese ) Pain Distress: None (not reproducable) Mental Status: Positive for: Alert and Oriented X 3 - Systems Exam Head: Present: Atraumatic, Normocephalic Pupils: Present: PERRL Extroacular Muscles: Present: EOMI Conjunctiva: Present: Normal Mouth: Present: Moist Mucous Membranes Neck: Present: Normal Range of Motion Respiratory/Chest: Present: Clear to Auscultation, Good Air Exchange. No: Respiratory Distress, Accessory Muscle Use, Rales, Rhonchi Cardiovascular: Present: Regular Rate and Rhythm, Normal S1, S2. No: Murmurs, Rub Abdomen: Present: Normal Bowel Sounds. No: Tenderness, Distention, Peritoneal Signs Back: Present: Normal Inspection Upper Extremity: Present: Normal Inspection. No: Cyanosis, Edema Lower Extremity: Present: Normal Inspection, Edema (Chronic lower edema 2+) Neurological: Present: GCS=15, CN II-XII Intact, Speech Normal Skin: Present: Warm, Dry, Normal Color. No: Rashes Psychiatric: Present: Alert, Oriented x 3, Normal Insight, Normal Concentration Medical Decision Making ED Course and Treatment: 08/27/17 00:18 Impression: 51 year old male presents complaining of lift sided chest pain associated with mild SOB. Patient has a hx of CHF, CABG, and PE. Plan: -- EKG -- CXR 2-views -- Aspirin -- Morphine -- Reassess and disposition Progress Notes: EKG shows NSR at 86 BPM with LBBB and no ST/T changes. Interpreted by me. 08/27/17 02:53 cardiac markers are negative, pt has many admissions for the same thing. cardiac markers negative however pt continues to c/o chest pain. his EKG shows no pacermaker activity, I am not sure his pacermaker indication he may benefit from interrogation as pacer malfunction may cause acute decompensattion. d/w dr. Fernandez who will have residents admit. 08/27/17 04:05 Reassessment Condition: Re-examined, Improving,but remains with symptoms - Lab Interpretations Lab Results: 08/27/17 00:30 08/27/17 00:30 Lab Results 08/27/17 00:30: Sodium 139, Potassium 4.0, Chloride 103, Carbon Dioxide 25, Anion Gap 15, BUN 36 H, Creatinine 1.3, Est GFR ( Amer) > 60, Est GFR ( Non-Af Amer) 59, Random Glucose 210 H, Calcium 9.2, Magnesium 1.6 L, Total Bilirubin 0.4, AST 19, ALT 26, Alkaline Phosphatase 147 H, Lactate Dehydrogenase 512, Total Creatine Kinase 283 H, CK-MB (CK-2) 1.2, CK-MB (CK-2) % Cancelled, Troponin I < 0.01, Total Protein 8.2, Albumin 3.8, Globulin 4.4, Albumin/Globulin Ratio 0.9 L 08/27/17 00:30: PT 16.4 H, INR 1.49 H, APTT 32.3 08/27/17 00:30: WBC 8.8 D, RBC 4.14, Hgb 10.5 L, Hct 34.6 L, MCV 83.6, MCH 25.4 , MCHC 30.3 L, RDW 15.8 H, Plt Count 203, MPV 9.3, Gran % 72.5 H, Lymph % (Auto ) 20.6 L, [place] % (Auto) 5.0, Eos % (Auto) 1.6, Baso % (Auto) 0.3, Gran # 6.34, Lymph # 1.8, [place] # 0.4, Eos # 0.1, Baso # 0.03 I have reviewed the lab results: Yes Interpretation: No sign. chg./baseline - RAD Interpretation Radiology Orders: 08/27/17 00:14 CHEST TWO VIEWS (PA/LAT) [RAD] Stat - Medication Orders Current Medication Orders: Discontinued Medications Aspirin (Aspirin Chewable) 324 mg PO STAT STA Stop: 08/27/17 00:47 Last Admin: 08/27/17 01:18 Dose: 324 mg Furosemide (Lasix) 40 mg IVP STAT STA Stop: 08/27/17 03:54 Morphine Sulfate (Morphine) 2 mg IVP STAT STA Stop: 08/27/17 00:47 Last Admin: 08/27/17 01:18 Dose: 2 mg IVP Administration Document 08/27/17 01:18 YP (Rec: 08/27/17 01:18 YP [id number]) Charges for Administration # of IVP Administrations 1 Nitroglycerin (Nitro-Bid 2% Oint) 1 ea TOP STAT STA Stop: 08/27/17 03:38 - Scribe Statement The provider has reviewed the documentation as recorded by the Saloni Cuenca Provider Scribe Attestation: All medical record entries made by the Mecheibed were at my direction and personally dictated by me. I have reviewed the chart and agree that the record accurately reflects my personal performance of the history, physical exam, medical decision making, and the department course for this patient. I have also personally directed, reviewed, and agree with the discharge instructions and disposition. Disposition/Present on Arrival - Present on Arrival Any Indicators Present on Arrival: Yes History of DVT/PE: Yes History of Uncontrolled Diabetes: Yes Urinary Catheter: No History of Decub. Ulcer: No History Surgical Site Infection Following: None - Disposition Have Diagnosis and Disposition been Completed?: Yes Diagnosis: Chest pain, Atypical chest pain Disposition: HOSPITALIZED Disposition Time: 04:06 Patient Plan: Observation, Telemetry Patient Problems: Current Active Problems Problem Status Onset Atypical chest pain Acute Chest pain Acute Condition: IMPROVED Discharge Instructions (ExitCare): Chest Pain (ED) Forms: [facility] ([place])
[2017-08-27 02:31] VITALS: O2SAT 100
[2017-08-27] MEDS ORDERED: Nitroglycerin 2% Ointment Foilpak UD TOP STA (03:37)
--- NOTE | 2017-08-27 05:11 | CP.PCM.HP ---
<Jesus Arora - Last Filed: 08/27/17 05:08> History of Present Illness - History of Present Illness History of Present Illness: 51 y/o M with PMH of A-fib, CABG, CHF s/p AICD placement, HTN, DM, HLD, SLE, Hypothyroidism, and morbid obesity presents to the hospital for 1 day hx of chest pain. Pt says he was with his brother watching tv last night when he began to develop sudden onset chest pain located on the left side. Pain radiates to the left shoulder, according to patient. Pain is described as squeezing in nature. Patient has had these symptoms many times in the past, but he reports this episode being worse than other times. Pt states he is compliant with his medications. Patient does admit to orthopnea and dyspnea on exertion, both of which he has had for an extended period of time. Denies N/V/D, fever, chills, dysuria, numbness, tingling. changes in vision. PMH: As above Surgical Hx: AICD placement FMH: Noncontributory Social Hx: Current smoker, denies alcohol or illicit drug use Allergies: NKDA Medications: Reviewed, as per MAR Present on Admission - Present on Admission Any Indicators Present on Admission: No Review of Systems - Review of Systems Review of Systems: 12 Point ROS as per HPI, otherwise negative. Past Patient History - Infectious Disease Hx of Infectious Diseases: None - Past Medical History & Family History Past Medical History?: Yes - Past Social History Smoking Status: Current Some Days Smoker - CARDIAC Hx Atrial Fibrillation: Yes Hx Cardia Arrhythmia: Yes (AFIB) Hx Congestive Heart Failure: Yes Hx Hypertension: Yes Hx Pacemaker: Yes (left upper chest) Hx Peripheral Edema: Yes - PULMONARY Hx Chronic Obstructive Pulmonary Disease (COPD): Yes Hx Emphysema: Yes Hx Pneumonia: Yes Hx Sleep Apnea: Yes - NEUROLOGICAL Hx Transient Ischemic Attacks (TIA): Yes (Hx of Strokes-2008) - HEENT Hx HEENT Problems: No - RENAL Hx Chronic Kidney Disease: No - ENDOCRINE/METABOLIC Hx Hypothyroidism: Yes - HEMATOLOGICAL/ONCOLOGICAL Hx Blood Disorders: Yes Hx Blood Transfusions: Yes - INTEGUMENTARY Hx Dermatological Problems: No - MUSCULOSKELETAL/RHEUMATOLOGICAL Hx Musculoskeletal Disorders: No Hx Falls: No - GASTROINTESTINAL Hx Gastrointestinal Disorders: No - GENITOURINARY/GYNECOLOGICAL Hx Genitourinary Disorders: No - PSYCHIATRIC Hx Anxiety: Yes Hx Substance Use: No - SURGICAL HISTORY Hx Coronary Artery Bypass Graft: Yes (2008) Hx Coronary Stent: Yes (3 Stents Prior to Quadruple Bypass) - ANESTHESIA Hx Anesthesia: Yes Hx Anesthesia Reactions: No Hx Malignant Hyperthermia: No Meds Allergies/Adverse Reactions: Allergies Allergy/AdvReac Type Severity Reaction Status Date / Time No Known Drug Allergies Allergy n/a Verified 07/12/17 14:03 Physical Exam - Constitutional Appears: Non-toxic, No Acute Distress - Head Exam Head Exam: ATRAUMATIC, NORMAL INSPECTION, NORMOCEPHALIC - Eye Exam Eye Exam: EOMI, Normal appearance - ENT Exam ENT Exam: Mucous Membranes Dry - Neck Exam Neck exam: Positive for: Normal Inspection. Negative for: Lymphadenopathy - Respiratory Exam Respiratory Exam: Clear to Auscultation Bilateral, NORMAL BREATHING PATTERN. absent: Rales, Rhonchi, Wheezes - Cardiovascular Exam Cardiovascular Exam: RRR, +S1, +S2 Additional comments: Reproducible pain on palpation of left side of chest wall - GI/Abdominal Exam GI & Abdominal Exam: Normal Bowel Sounds, Soft. absent: Tenderness - Extremities Exam Extremities exam: Positive for: pedal edema (+3 edema b/l). Negative for: calf tenderness - Neurological Exam Neurological exam: Alert, CN II-XII Intact, Oriented x3 - Psychiatric Exam Psychiatric exam: Normal Affect, Normal Mood - Skin Skin Exam: Dry, Intact Additional comments: Chronic venous stasis changes b/l Results - Vital Signs Recent Vital Signs: Last Vital Signs Temp 98.2 F 08/27/17 00:30 Pulse 88 08/27/17 03:30 Resp 16 08/27/17 03:30 BP 133/83 08/27/17 04:07 Pulse Ox 100 08/27/17 03:30 - Labs Result Diagrams: 08/27/17 00:30 08/27/17 00:30 Assessment & Plan - Assessment and Plan (Free Text) Plan: 51 y/o M with PMH of A-fib, CABG, CHF s/p AICD placement, HTN, DM, HLD, SLE, Hypothyroidism, and morbid obesity presents for CP r/o ACS. Pt will be admitted for observation and have cardiology consulted. Will continue to monitor. 1. CP r/o ACS Trop negative x1, will trend q4h Nitropaste for pain Mag low, will replete Will order CPK Will order BNP Cardiology consulted, Dr. Balderas 2. HTN Continue Lisinopril 3. CHF Continue Lisinopril, Lasix, Digoxin, Coreg 4. Afib Continue Coreg and Eliquis 5. Hx of CABG Continue ASA, Lipitor, and Plavix 6. DM Will hold Januvia ISS 7. SLE Continue Plaquenil 8. Hypothyroidism Continue Synthroid 9. PPX Protonix Eliquis Maite, PGY-2 <Roberto Fernandez U - Last Filed: 08/27/17 15:39> Results - Vital Signs Recent Vital Signs: Last Vital Signs Temp 97.1 F L 08/27/17 06:00 Pulse 83 08/27/17 14:00 Resp 18 08/27/17 06:00 BP 163/90 H 08/27/17 13:32 Pulse Ox 100 08/27/17 06:00 - Labs Result Diagrams: 08/27/17 12:20 08/27/17 12:20 Labs: Laboratory Results - last 24 hr 08/27/17 08/27/17 08/27/17 05:00 12:20 12:20 WBC 9.3 RBC 4.15 Hgb 10.6 L Hct 34.4 L MCV 82.9 MCH 25.5 MCHC 30.8 L RDW 15.8 H Plt Count 218 MPV 9.7 Gran % 75.2 H Lymph % (Auto) 18.8 L [place] % (Auto) 4.5 Eos % (Auto) 1.3 L Baso % (Auto) 0.2 Gran # 7.02 H Lymph # 1.8 [place] # 0.4 Eos # 0.1 Baso # 0.02 Sodium 138 Potassium 4.0 Chloride 105 Carbon Dioxide 25 Anion Gap 12 BUN 26 H Creatinine 1.0 Est GFR ( Amer) > 60 Est GFR (Non-Af Amer) > 60 Random Glucose 175 H Calcium 8.9 Total Bilirubin 0.4 AST 21 ALT 29 Alkaline Phosphatase 141 H Lactate Dehydrogenase 460 Total Creatine Kinase 218 Troponin I < 0.01 Total Protein 7.5 Albumin 3.5 Globulin 4.1 Albumin/Globulin Ratio 0.9 L Triglycerides 76 Cholesterol 62 L LDL Cholesterol Direct < 30 HDL Cholesterol 31 Urine Opiates Screen Positive H Urine Methadone Screen Negative Ur Barbiturates Screen Negative Ur Phencyclidine Scrn Negative Ur Amphetamines Screen Negative U Benzodiazepines Scrn Negative U Oth Cocaine Metabols Negative U Cannabinoids Screen Negative Assessment & Plan - Assessment and Plan (Free Text) Assessment: Assessment and plan: Chest pain Questionable unstable angina Uncontrolled hypertension anemia Hyperglycemia Hypomagnesemia Type 2 diabetes mellitus Iron deficiency anemia Prerenal kidney injury coronary artery disease Bilateral lower extremity lymphedema Atrial fibrillation History of syncope History of myocardial infarction Coronary artery disease Questionable cardiomyopathy Coronary artery bypass History of angioplasty and stent placement. Status post AICD implant History of DVT type 2 diabetes mellitus hypothyroidism Systemic lupus erythem History of gastric bypass Status post right knee replacement Chronic back pain syndrome History of transient ischemic attack Questionable history of cerebrovascular accident anxiety disorder Chronic obstructive pulmonary disease. Obstructive sleep apnea Hypovitaminosis D Bilateral cerebral dysfunction History of diverticulosis Degenerative joint disease Left ventricular hypertrophy Degenerative joint disease Hypertensive cardiovascular disease. Tricuspid regurgitation. Pulmonary arterial hypert Elevated right ventricular systolic pressure of greater than 50 mmhg. Narcotic dependent pain syndrome. PLAN PER [employer] ORDERS
[2017-08-27] MEDS ORDERED: Magnesium Sulfate 2 GM in Sodium Chloride 0.9% 100 ML IVPB ONE (05:31)
[2017-08-27] MEDS ORDERED: Nitroglycerin 2% Ointment Foilpak UD TOP PRN (05:31)
[2017-08-27] MEDS ORDERED: Levothyroxine 100 MCG TAB PO SCH ×2 (06:00→10:00)
[2017-08-27] MEDS ORDERED: Pantoprazole 40 mg EC Tab PO SCH (06:00)
[2017-08-27 06:31] VITALS: RESP 18; TEMP 97.1
[2017-08-27] MEDS: Insulin Reg-MEDIUM-Coverage SC SCH ×3 (08:44→18:03)
[2017-08-27 09:23] LABS: CHOLESTEROL 76 mg/dL (130-200)
[2017-08-27 09:41] LABS: FREE T4 1.71 ng/dL (0.78-2.19); T4 8.7 ug/dL (5.5-11.0)
[2017-08-27 09:55] LABS: THYROID STIMULATING HORMONE 2.08 mIU/mL (0.46-4.68)
[2017-08-27 10:02] LABS: IRON 33 ug/dL (45-180)
--- NOTE | 2017-08-27 10:13 | RAD ---
HISTORY: chest pain COMPARISON: Chest x-ray performed 06/26/17 TECHNIQUE: Chest PA and lateral FINDINGS: Examination limited by habitus. LUNGS: No focal consolidation. PLEURA: No significant pleural effusion identified. No definite pneumothorax . CARDIOVASCULAR: Median sternotomy wires. Left-sided AICD. Heart size appears top normal. Atherosclerotic calcifications. OSSEOUS STRUCTURES: Degenerative changes. VISUALIZED UPPER ABDOMEN: Unremarkable. OTHER FINDINGS: None. IMPRESSION: No focal consolidation, significant pleural effusion, or definite pneumothorax identified.
[2017-08-27 12:59] LABS: BASO # 0.02 K/mm3 (0.0-2.0); BASO % 0.2 % (0.0-3.0); EOS # 0.1 (0.0-0.7); EOS % 1.3 % (1.5-5.0); GRAN # 7.02 (1.4-6.5); GRAN % 75.2 % (50.0-68.0); HEMATOCRIT 34.4 % (42.0-52.0); LYMPH # 1.8 (1.2-3.4); LYMPH % 18.8 % (22.0-35.0); MEAN CELL VOLUME 82.9 fl (80.0-105.0); MEAN CORPUSCULAR HEMOGLOBIN 25.5 pg (25.0-35.0); MEAN CORPUSCULAR HGB CONC 30.8 g/dl (31.0-37.0); MEAN PLATELET VOLUME 9.7 fl (7.0-11.0); MONO # 0.4 (0.1-0.6); MONO % 4.5 % (1.0-6.0); RED CELL DISTRIBUTION WIDTH 15.8 % (11.5-14.5); WHITE BLOOD COUNT 9.3 10^3/ul (4.5-11.0)
[2017-08-27] MEDS ORDERED: oxyCODONE 30 mg Immediate Release Tab PO STA (13:02)
--- NOTE | 2017-08-27 13:11 | CON ---
DATE: 08/27/2017 CARDIOLOGY CONSULTATION HISTORY OF PRESENT ILLNESS: The patient is in bed sleeping and refuses to answer questions. The history is from the chart. The patient is a 51-year-old male with a history of PTCA and stent in the past who presents with chest pain. PAST MEDICAL HISTORY: Includes chronic oxycodone intake, hypertension, hypothyroidism, history of PTCA and stent in the past and suffers from hyperlipidemia. He also has chronic atrial fibrillation treated with Eliquis. SOCIAL HISTORY: The patient refuses to speak. REVIEW OF SYSTEMS: Review of systems are not available. PHYSICAL EXAMINATION: VITAL SIGNS: Blood pressure is 111/64 with heart rate in the 80s. NECK: Negative JVD. LUNGS: Without rales. HEART: S1 and S2. EXTREMITIES: Without edema. DIAGNOSTIC STUDIES: EKG shows no acute changes. LABORATORY DATA: Glucose is 210. Troponin is negative x1. Hemoglobin is 10.5. IMPRESSION: 1. Chest pain. 2. No evidence for acute coronary syndrome. 3. Anemia. 4. Hypercholesterolemia. 5. History of percutaneous transluminal coronary angioplasty and stent. 6. Obesity. 7. Atrial fibrillation. 8. Diabetes mellitus. 9. Obesity. 10. Uncooperative for history and physical. PLAN: Given these findings, given that there is no evidence for acute coronary syndrome, we would resume his present medications. No other plans at this time given the patient's refusal to give a history. Junaid Balderas MD
[2017-08-27 13:46] LABS: ALB/GLOB RATIO 0.9 (1.1-1.8); ALKALINE PHOSPHATASE 141 U/L (38-126); ALT/SGPT 29 U/L (7-56); AST/SGOT 21 U/L (17-59); BILIRUBIN,TOTAL 0.4 mg/dL (0.2-1.3); BLOOD UREA NITROGEN 26 mg/dL (7-21); CALCIUM 8.9 mg/dL (8.4-10.5); CARBON DIOXIDE 25 mmol/L (21-33); CHLORIDE 105 mmol/L (98-107); CHOLESTEROL 62 mg/dL (130-200); GFR AFRICAN-AMERICAN > 60; GLUCOSE,RANDOM 175 mg/dL (70-110); SODIUM 138 mmol/L (132-148); TOTAL PROTEIN 7.5 g/dL (5.8-8.3)
[2017-08-27 13:50] LABS: TROPONIN I < 0.01 ng/mL
[2017-08-27] MEDS ORDERED: Digoxin 125 mcg (0.125 mg) Tab PO SCH (14:00)
[2017-08-27 14:58] VITALS: PULSE 94
[2017-08-27] MEDS ORDERED: oxyCODONE 30 mg Immediate Release Tab PO PRN ×2 (15:03→15:05)
[2017-08-27 17:58] LABS: FOLATE 19.9 ng/mL
[2017-08-27 18:15] VITALS: BP 175/93; PULSE 81
[2017-08-27 20:45] LABS: FOLATE > 20.0 ng/mL
--- NOTE | 2017-08-27 21:48 | CARD ---
APPROVED REPORT EKG Measurement Heart [id number] AK [id number] <Conclusion> Atrial sensed, ventricular paced rhythm
--- NOTE | 2017-08-27 22:01 | CARD ---
APPROVED REPORT EKG Measurement Heart [id number] RI [id number] <Conclusion> Atrial sensed, ventricular paced rhythm
--- NOTE | 2017-08-29 09:24 | DS ---
DATE OF ADMISSION: 08/27/2017 The patient was earlier seen in the morning. The patient was examined. The patient was ordered multiple diagnostic therapeutic intervention, which the patient continued persistently refused. The patient refused to be examined and the patient refused to give further details of history to me and Dr. Balderas. The patient continuously was asking for narcotic pain medicine for chronic back pain syndrome. Patient's pharmacy was called, documentary evidence and proof of the patient's narcotic was unavailable at present. The patient continued to refuse lab test diagnostic and therapeutic intervention. The patient was seen by Cardiology, Dr. Balderas due to the patient's noncompliance and refusal with therapy and refusal with the physician recommendations. Cardiology has documented that no other plans as the patient is uncooperative and not cooperating with the medical care, so the patient could be discharge. The patient is discharged home. The patient is advised, discharge followup with PMD in [place].. The patient is advised to follow up PMD for all future and further care. FINAL IMPRESSION, PLAN AND DISCHARGE DIAGNOSES: 1. Severely uncooperative patient. 2. Severe noncompliance. 3. Atypical chest pain. 4. Hypertension. 5. Congestive heart failure. 6. Atrial fibrillation. 7. Coronary artery disease, coronary bypass graft and automatic implantable cardioverter-defibrillator implant. 8. Diabetes mellitus. 9. History of systemic lupus erythematosus. 10. Lymphedema. 11. Hypothyroidism. 12. Morbid obesity. 13. Normocytic anemia. 14. Granulocytosis. 15. Possible iron deficiency. 16. Hypomagnesemia. 17. Hyperglycemia. 18. Hypovitaminosis D. 19. Narcotic dependent chronic pain syndrome. 20. Automatic implantable cardioverter-defibrillator implant. 21. No evidence of acute coronary syndrome. 22. Uncooperative patient. 23. Obesity. The patient is discharged home after cleared by Cardiology. The patient is advised follow up with PMD in [place] and resume all home medications. Dictated and electronically signed, not read. Signing off; Roberto Fernandez MD
== END 2017-08-27 19:03 | disposition home or self-care (01) ==
LOC: ED 00:01 → ERH 03:59 → 3RSO 05:29
PROVIDERS: ADMIT Internal Medicine; ATTEND Internal Medicine
DX: R07.89 Other chest pain (principal); Z91.19 Patient's noncompliance with other medical treatment and regimen; I25.10 Atherosclerotic heart disease of native coronary artery without angina pectoris; M32.9 Systemic lupus erythematosus, unspecified; E03.9 Hypothyroidism, unspecified; E66.01 Morbid (severe) obesity due to excess calories; E11.65 Type 2 diabetes mellitus with hyperglycemia; E55.9 Vitamin D deficiency, unspecified; G89.4 Chronic pain syndrome; F11.20 Opioid dependence, uncomplicated; E83.42 Hypomagnesemia; I50.9 Heart failure, unspecified; I11.0 Hypertensive heart disease with heart failure; I48.2 Chronic atrial fibrillation; D50.9 Iron deficiency anemia, unspecified; J44.9 Chronic obstructive pulmonary disease, unspecified; F41.9 Anxiety disorder, unspecified; E78.00 Pure hypercholesterolemia, unspecified; G47.33 Obstructive sleep apnea (adult) (pediatric); I89.0 Lymphedema, not elsewhere classified; F17.210 Nicotine dependence, cigarettes, uncomplicated; I25.2 Old myocardial infarction; Z87.01 Personal history of pneumonia (recurrent); Z95.1 Presence of aortocoronary bypass graft; Z95.810 Presence of automatic (implantable) cardiac defibrillator; Z86.73 Personal history of transient ischemic attack (TIA), and cerebral infarction without residual deficits; Z79.02 Long term (current) use of antithrombotics/antiplatelets; Z79.899 Other long term (current) drug therapy; Z96.651 Presence of right artificial knee joint; Z98.84 Bariatric surgery status; Z86.718 Personal history of other venous thrombosis and embolism; Z95.5 Presence of coronary angioplasty implant and graft
CPT/HCPCS: 71020; 80053; 80061; 82306; 82550; 82553; 82607; 82668; 82728; 82746; 83036; 83540; 83550; 83615; 83735; 84439; 84443; 84484; 85025; 85610; 85730; 93005; 96374; 96375; 99285; G0378; G0480; J1756; J1940; J2270

== ENCOUNTER 2018-10-01 12:24 | Emergency (ER) | payer MEDICARE, OTHER ==
[2018-10-01 12:24] VITALS: PULSE 72; BMI 48.3
[2018-10-01 12:34] VITALS: BP 132/64; PULSE 73; RESP 18; TEMP 98.1; O2SAT 98
--- NOTE | 2018-10-01 12:49 | ED PDOC ---
Arrival/HPI - General Chief Complaint: Chest Pain Time Seen by Provider: 10/01/18 12:25 Historian: Patient - History of Present Illness Time/Duration: Other (several days) Symptom Onset: Gradual Symptom Course: Unchanged Severity Level: Mild Activities at Onset: Rest Associated Symptoms (Text): 10/01/18 12:52 Patient complains of intermittent chest pain for the last several days. History of coronary artery disease CABG stent placement pacemaker defibrillator. He was discharged from another hospital yesterday after admission for similar complaints. He also complains of dyspnea. There is a history of heart failure. He is morbidly obese. He has a chronic medial and lateral right lower extremity ulcer. Past Medical History - Infectious Disease Hx of Infectious Diseases: None - Cardiac Hx Atrial Fibrillation: Yes Hx Cardiac Arrhythmia: Yes (AFIB) Hx Congestive Heart Failure: Yes Hx Hypertension: Yes Hx Pacemaker: Yes Hx Peripheral Edema: Yes - Pulmonary Hx Chronic Obstructive Pulmonary Disease (COPD): Yes Hx Emphysema: Yes Hx Pneumonia: Yes Hx Sleep Apnea: Yes - Neurological Hx Transient Ischemic Attacks (TIA): Yes - HEENT Hx HEENT Disorder: No - Renal Hx Renal Disorder: No - Endocrine/Metabolic Hx Hypothyroidism: Yes - Hematological/Oncological Hx Anemia: Yes - Integumentary Hx Dermatological Disorder: No - Musculoskeletal/Rheumatological Hx Falls: No - Gastrointestinal Hx Gastrointestinal Disorders: No - Genitourinary/Gynecological Hx Genitourinary Disorders: No - Psychiatric Hx Anxiety: Yes Hx Substance Use: No - Surgical History Hx Coronary Artery Bypass Graft: Yes (2008 x4) Hx Coronary Stent: Yes (4) - Anesthesia Hx Anesthesia: Yes Hx Anesthesia Reactions: No Hx Malignant Hyperthermia: No - Suicidal Assessment Feels Threatened In Home Enviroment: No Family/Social History - Physician Review Nursing Documentation Reviewed: Yes Family/Social History: Unknown Family HX Smoking Status: Light Smoker < 10 Cigarettes Daily Hx Alcohol Use: No Hx Substance Use: No Allergies/Home Meds Allergies/Adverse Reactions: Allergies No Known Drug Allergies Allergy (Verified 10/01/18 12:32) n/a none Home Medications: Home Meds Medication Instructions Recorded Confirmed RX: Clopidogrel [Plavix] 75 mg PO DAILY 11/29/15 09/29/18 RX: Levothyroxine [Synthroid] 1 tab PO DAILY 09/19/16 09/29/18 RX: oxyCODONE [oxyCODONE Immediate 30 mg PO Q4H PRN 06/26/17 09/29/18 Release Tab] Review of Systems - Physician Review All systems were reviewed & negative as marked: Yes - Review of Systems Constitutional: absent: Fatigue, Fevers Respiratory: SOB. absent: Cough, Wheezing Cardiovascular: Chest Pain. absent: Palpitations, Syncope Gastrointestinal: absent: Abdominal Pain, Nausea, Vomiting Genitourinary Male: absent: Dysuria, Frequency, Hematuria Neurological: absent: Headache, Dizziness, Focal Weakness Physical Exam Vital Signs Temp Pulse Resp BP Pulse Ox 10/01/18 12:30 98.1 F 73 18 132/64 98 Temperature: Afebrile Blood Pressure: Normal Pulse: Regular Respiratory Rate: Normal Appearance: Positive for: Well-Appearing, Non-Toxic, Comfortable, Other (mor bidly obese) Pain Distress: None Mental Status: Positive for: Alert and Oriented X 3 - Systems Exam Head: Present: Atraumatic, Normocephalic Pupils: Present: PERRL Extroacular Muscles: Present: EOMI Conjunctiva: Present: Normal Mouth: Present: Moist Mucous Membranes Pharnyx: No: ERYTHEMA, EXUDATE, TONSILS ENLARGED Neck: Present: Normal Range of Motion Respiratory/Chest: Present: Clear to Auscultation, Good Air Exchange, Decreased Breath Sounds. No: Respiratory Distress, Accessory Muscle Use Cardiovascular: Present: Regular Rate and Rhythm, Normal S1, S2. No: Murmurs Abdomen: No: Tenderness, Distention, Peritoneal Signs, Rebound, Guarding Upper Extremity: Present: Normal Inspection. No: Cyanosis, Edema Lower Extremity: Present: Other (medial and lateral right lower leg ulcers) Neurological: Present: GCS=15, CN II-XII Intact, Speech Normal, Motor Func Grossly Intact Skin: Present: Warm, Dry, Normal Color, Other (lower extremity ulcers as above). No: Rashes Psychiatric: Present: Alert, Oriented x 3, Normal Insight, Normal Concentration Medical Decision Making ED Course and Treatment: 10/01/18 12:56 EKG is pacing rate approximately 72. 10/01/18 13:44 We were unable to obtain blood samples. Patient is refusing additional attempts. I discussed with the patient that his EKG showed a working pacemaker and his x- ray showed no evidence of heart failure. He will sign out AMA. He is awake alert and able to make such a decision. He will be discharged home accompanied by his brother. - RAD Interpretation Radiology Orders: 10/01/18 12:43 CHEST PORTABLE [RAD] Stat X-ray chest one view shows cardiomegaly with a device present. No infiltrate or effusion. Mobile Product Manager: ED Physician Disposition/Present on Arrival - Present on Arrival Any Indicators Present on Arrival: No History of DVT/PE: Yes History of Uncontrolled Diabetes: Yes Urinary Catheter: No History of Decub. Ulcer: No History Surgical Site Infection Following: CABG - Mediastinitis - Disposition Have Diagnosis and Disposition been Completed?: Yes Diagnosis: AICD (automatic cardioverter/defibrillator) present, Morbid obesity with BMI of 45.0-49.9, adult, Chronic pain syndrome, Chest discomfort, Leg ulcer, S/P CABG (coronary artery bypass graft), Chest pain Disposition: AGAINST MEDICAL ADVICE Disposition Time: 13:46 Patient Plan: Discharge Condition: FAIR Discharge Instructions (ExitCare): Obesity, Adult, Chest Pain, Chest Pain (ED) Forms: [employer] (Cam[place]onian)
--- NOTE | 2018-10-01 13:41 | RAD ---
Date of service: 10/01/2018 HISTORY: cp COMPARISON: 08/27/2017 FINDINGS: LUNGS: No active pulmonary disease. PLEURA: No significant pleural effusion identified, no pneumothorax apparent. CARDIOVASCULAR: No aortic atherosclerotic calcification present. Moderate cardiomegaly no pulmonary vascular congestion. OSSEOUS STRUCTURES: Sternal wires VISUALIZED UPPER ABDOMEN: Normal. OTHER FINDINGS: Dual lead pacemaker. IMPRESSION: No active disease.
--- NOTE | 2018-10-01 20:39 | CARD ---
APPROVED REPORT Date of service: 10/01/2018 EKG Measurement Heart [id number] MD [id number] <Conclusion> Electronic ventricular pacemaker
== END 2018-10-01 14:01 | disposition left against medical advice (07) ==
LOC: ED 12:24
DX: R07.9 Chest pain, unspecified (principal); L97.919 Non-pressure chronic ulcer of unspecified part of right lower leg with unspecified severity; G89.4 Chronic pain syndrome; E66.01 Morbid (severe) obesity due to excess calories; Z68.42 Body mass index [BMI] 45.0-49.9, adult; Z95.810 Presence of automatic (implantable) cardiac defibrillator; Z95.1 Presence of aortocoronary bypass graft; I25.10 Atherosclerotic heart disease of native coronary artery without angina pectoris; I48.91 Unspecified atrial fibrillation; I11.0 Hypertensive heart disease with heart failure; I50.9 Heart failure, unspecified; J44.9 Chronic obstructive pulmonary disease, unspecified; Z86.73 Personal history of transient ischemic attack (TIA), and cerebral infarction without residual deficits; Z95.5 Presence of coronary angioplasty implant and graft; F17.210 Nicotine dependence, cigarettes, uncomplicated